=== PATIENT | female | born 1990 | race Caucasian/White ===

== ENCOUNTER 2019-09-17 15:24 | Outpatient (CLI) | payer BC ==
--- NOTE | 2019-09-17 16:14 | ULT ---
THYROID ULTRASOUND: Indications: Thyroid nodule which is palpable. FINDINGS: Both lobes are homogeneous. There is a circumscribed solid nodule mildly hyperechoic involving the mid right lobe of the thyroid measuring 2.2 x 2.2 x 2.5 cm. There are at least three tiny cystic nodules in the superior left lobe of the thyroid measuring in th e 4-6 mm range. IMPRESSION: Moderately suspicious dominant mass in the right lobe of the thyroid. Recommend ultrasound guided FMA of this mass. POS: AH
== END 2019-09-17 15:25 | disposition home or self-care (01) ==
LOC: BICULT 15:24
PROVIDERS: ATTEND Family Medicine
DX: E07.9 Disorder of thyroid, unspecified (principal)
CPT/HCPCS: 76536

== ENCOUNTER 2020-11-01 09:04 | Emergency (ER) | payer BC, SELFPAY ==
[2020-11-01 09:58] LABS: #Monocytes 0.7 thou/uL (0.11-0.59); #Neutrophils 11.3 thou/uL (1.40-6.50); %Basophils 0.3 % (0.0-1.0); %Eosinophils 0.2 % (0.0-10.0); %Lymphocytes 7.4 % (21.0-51.0); %Monocytes 5.3 % (0.0-10.0); %Neutrophils 86.9 % (42.0-75.0); Hemoglobin 13.2 g/dL (12.0-16.0); Mean Corpuscular HGB CONC 35.1 g/dL (32.0-36.0); Mean Corpuscular Hemoglobin 29.7 pg (27.0-31.0); Mean Corpuscular Volume 84.5 fL (78.0-98.0); Mean Platelet Volume 7.5 fL (7.4-10.4); Platelet Count 263 thou/uL (130-400); RBC Distribution Width 13.1 % (11.5-14.5); Red Blood Cell (RBC) Count 4.44 mill/uL (4.20-5.40); White Blood Cell (WBC) Count 13.1 thou/uL (4.8-10.8)
[2020-11-01 10:19] LABS: ALT (SGPT) 175 U/L (8-55); AST (SGOT) 87 U/L (5-34); Albumin 4.7 g/dL (3.5-5.0); Alkaline Phosphatase 61 U/L (40-110); Anion Gap 17 mmol/L (10-20); BUN (Urea Nitrogen) 5 mg/dL (7.0-18.7); Bilirubin, Total 0.7 mg/dL (0.2-1.2); Calc. Creatinine Clearance 0 mL/min (70-130); Calcium 9.7 mg/dL (7.8-10.44); Carbon Dioxide 22 mmol/L (22-29); Chloride 101 mmol/L (98-107); Globulin 3.1 g/dL (2.4-3.5); Glucose 129 mg/dL (70-105); Lipase 47 U/L (8-78); Potassium 4.1 mmol/L (3.5-5.1); Protein, Total 7.8 g/dL (6.0-8.3); Sodium 136 mmol/L (136-145)
[2020-11-01] MEDS ORDERED: Acetaminophen 500 MG TAB ONE (10:53)
[2020-11-01 12:50] LABS: Troponin I Less than 0.010 ng/mL (< 0.028)
== END 2020-11-01 13:15 | disposition home or self-care (01) ==
LOC: ERS 09:04
DX: F14.10 Cocaine abuse, uncomplicated (principal); R07.89 Other chest pain; E78.5 Hyperlipidemia, unspecified
CPT/HCPCS: 36415; 71045; 80053; 83690; 84484; 85025; 93005